=== PATIENT | male | born 1960 | race Caucasian/White ===

== ENCOUNTER 2022-04-27 16:16 | Observation (INO) | payer OTHER, SELFPAY ==
[2022-04-27] VITALS (17 sets, daily range): BP systolic 111–158; BP diastolic 64–107; PULSE 74–97; RESP 13–23; TEMP 36.6; O2SAT 93–99; BMI 26.6
--- NOTE | ~2022-04-27 | XR_ITS ---
XR chest 2V DATE: 04/27/2022 16:40 INDICATION: Right-sided chest pain. History of hypertension. Smoker. TECHNIQUE: PA and lateral views COMPARISON: None FINDINGS: There are plates and screws along the fifth through ninth ribs. Old right clavicular shaft fracture deformity. Likely chronic blunting of the right costophrenic angle. Normal heart size. Mild aortic unfolding. No pulmonary infiltrate or consolidation, pulmonary mass or congestion, pleural effusion or pneumothorax is evident. IMPRESSION: Old right clavicular shaft fracture deformity Plates and screws along fifth through ninth right ribs and probable chronic blunting of right costoph renic angle No active cardiopulmonary disease Reviewed, dictated and finalized at location A. IMPRESSION: Old right clavicular shaft fracture deformity Plates and screws along fifth through ninth right ribs and probable chronic nancy nting of right costophrenic angle No active cardiopulmonary disease
--- NOTE | ~2022-04-27 | NM_ITS ---
EXAMINATION: NM alexei stress w perfusion DATE: 04/28/2022 10:43 INDICATION: Chest pain. TECHNIQUE: Rest images were obtained following intravenous administration of 12.5 mCi Tc99m tetrofosm in (Myoview). The patient was infused intravenously with Lexiscan (regadenoson). Then, 33.2 mCi Tc99m tetrofosmin (Myoview) was administered intravenously, and stress images were obtained. Data was ap nstructed into short axis and horizontal and vertical long axis SPECT images. Gated SPECT images were also obtained. COMPARISON: None. FINDINGS: There is no definite reversible or fixed perfusion abnormality to suggest ischemia or infar ction. There is no segmental wall motion abnormality. Left ventricular ejection fraction measures 5 7%. IMPRESSION: 1. No definite ischemia or infarct. 2. Normal left ventricular ejection fraction measuring 57%. Reviewed, dictated and finalized at location A.
--- NOTE | 2022-04-27 16:18 | ECG_ITS ---
Measurements Intervals [place] Rate: 93 P: 56 IN: 136 QRS: 58 QRSD: 94 T: 61 QT: 342 QTc: 427 Interpretive Statements SINUS RHYTHM NORMAL ECG NO PREVIOUS ECG AVAILABLE FOR COMPARISON Electronically Signed On 04-27-2022 16:32:09 CDT by Fco Yates D.O.
[2022-04-27 16:44] LABS: Basophils Absolute Auto 0.1 K/mm3 (0.0-0.1); Basophils Percent Auto 0.6 % (0.2-1.2); Eosinophils Absolute Auto 0.1 K/mm3 (0-0.3); Eosinophils Percent Auto 1.5 % (0-4.4); Hematocrit 48.7 % (42.0-52.0); Hemoglobin 16.3 g/dL (14.0-18.0); Immature Granulocyte Absolute 0.02 K/mm3 (0.00-0.031); Immature Granulocyte Percent A 0.3 % (0-0.5); Lymphocytes Absolute Auto 3.01 K/mm3 (0.9-3.2); Lymphocytes Percent Auto 38.1 % (18.3-44.2); Mean Corpuscular HGB Conc 33.5 g/dl (32-36); Mean Corpuscular Hemoglobin 31.7 pg (26-34); Mean Corpuscular Volume 94.7 fl (80-100); Mean Platelet Volume 8.9 fl (7.4-10.4); Monocytes Absolute Auto 0.6 K/mm3 (0.1-0.6); Monocytes Percent Auto 7.2 % (2.6-8.5); Neutrophils Absolute Auto 4.1 K/mm3 (1.3-6.7); Neutrophils Percent Auto 52.3 % (45.5-73.1); Platelet Count Result 230 k/mm3 (150-375); Red Blood Count 5.14 M/mm3 (4.6-6.20); Red Cell Distribution Width 12.8 % (11.5-14.5); White Blood Count 7.9 K/mm3 (4.5-10.0)
[2022-04-27 16:48] LABS: Alanine Aminotransferase 27 U/L (6-50); Albumin Level 4.8 g/dL (3.5-5.1); Alkaline Phosphatase 92 U/L (38-126); Anion Gap 10 mmol/L (8-16); Aspartate Amino Transferase 31 U/L (17-59); Bilirubin,Total 0.5 mg/dL (0.2-1.3); Blood Urea Nitrogen 16 mg/dL (9-20); Calcium 8.9 mg/dL (8.4-10.2); Carbon Dioxide 27 mmol/L (22-30); Chloride 105 mmol/L (98-107); Estimated Glomerular Filt Rate > 60; Glucose 92 mg/dL (65-110); Lipase 159 U/L (23-300); Potassium 4.4 mmol/L (3.4-5.0); Sodium 142 mmol/L (137-145)
[2022-04-27 16:59] LABS: Troponin I < 0.012 ng/mL (0.000-0.034)
[2022-04-27 17:02] LABS: Prothrombin Time 12.7 Seconds (11.1-14.7)
[2022-04-27 17:03] LABS: Partial Thromboplastin Time 32.2 SECONDS (22.3-36.8)
[2022-04-27] MEDS: ASPIRIN 81 MG CHEWABLE TABLET 324 MG PO (18:29)
--- NOTE | 2022-04-27 18:29 | ED.CHESTPAIN ---
HPI - Chest Pain General Chief Complaint: Chest Pain Stated Complaint: CHEST PAIN [id number] Time Seen by Provider: 04/27/22 18:17 History of Present Illness HPI narrative: Pt states she developed anterior chest pain radiating to jaw and back at 1545 today. The pain lasted about 30 minutes and resolved on arrival to ER. Pt admits to having several similar episodes over the last few months that are not associated with exertion and resolve on their own. Pt had cardiac cath in 2019 with a 20% blockage per pt at [facility]. Related Data Allergies Allergy/AdvReac Type Severity Reaction Status Date / Time No Known Allergies Allergy Unverified 12/16/16 17:43 Review of Systems Review of Systems: All systems reviewed & are unremarkable except as noted in HPI and below PMFSH Past Medical History Medical History (Updated 04/27/22 @ 20:45 by María Santos NP) Diverticulosis of colon Hypertension CHERYL on CPAP Tobacco abuse Surgical History Surgical History (Updated 04/27/22 @ 20:45 by María Santos NP) H/O hand surgery H/O knee surgery H/O oral surgery H/O shoulder surgery S/P cardiac cath S/P colon resection Family History Family History (Updated 01/23/16 @ 23:19 by DOCTOR UNKNOWN) Sibling Family history of alcoholism Family history of diabetes mellitus in first degree relative Mother Family history of malignant neoplasm Other Family history of cardiovascular disease Social History Social History (Updated 04/27/22 @ 20:49 by María Santos NP) Social History: one child [facility] concrete smoke 1ppk [facility] Smoking status: Heavy tobacco smoker Alcohol intake: current Exam Const: General: healthy appearing and no acute distress Nutritional Appearance: well nourished Orientation/consciousness: patient oriented x3 Limitations: no limitations Neck: Neck: normal visual inspection Resp: Effort & Inspection: normal respiratory effort Auscultation: clear to auscultation bilaterally Cardio: Rate: regular rate Rhythm: regular rhythm GI: Auscultation: normal bowel sounds Skin: General skin exam: normal color Rashes: no rashes Neuro: General: patient oriented x3 Cranial nerves: Yes Nystagmus not present Speech: normal speech Extrem: General: normal to inspection and no clubbing, cyanosis or edema Psych: Mental Status: mental status grossly normal Affect: normal affect Attitude: cooperative Course Vital Signs Vital signs: Vital Signs Temperature 97.9 F 04/27/22 16:53 Pulse Rate 90 04/27/22 16:53 Respiratory Rate 14 04/27/22 16:53 Blood Pressure 143/102 H 04/27/22 16:53 Pulse Oximetry 96 04/27/22 16:53 Oxygen Delivery Room Air 04/27/22 16:53 Temperature 97.9 F 04/27/22 16:53 Pulse Rate 85 04/27/22 20:30 Respiratory Rate 17 04/27/22 20:30 Blood Pressure 136/93 H 04/27/22 20:01 Pulse Oximetry 95 04/27/22 20:30 Oxygen Delivery Room Air 04/27/22 16:53 MDM - Chest Pain Lab Data Result diagrams: 04/27/22 16:25 04/27/22 16:25 Labs: Lab Results 04/27/22 04/27/22 04/27/22 Range/Units 16:25 16:25 16:25 WBC 7.9 (4.5-10.0) K/mm3 RBC 5.14 (4.6-6.20) M/mm3 Hgb 16.3 (14.0-18.0) g/dL Hct 48.7 (42.0-52.0) % MCV 94.7 (80-100) fl MCH 31.7 (26-34) pg MCHC 33.5 (32-36) g/dl RDW 12.8 (11.5-14.5) % Plt Count 230 (150-375) k/mm3 MPV 8.9 (7.4-10.4) fl Immature Gran % (Auto) 0.3 (0-0.5) % Neut % (Auto) 52.3 (45.5-73.1) % Lymph % (Auto) 38.1 (18.3-44.2) % [place] % (Auto) 7.2 (2.6-8.5) % Eos % (Auto) 1.5 (0-4.4) % Baso % (Auto) 0.6 (0.2-1.2) % Lymph # (Auto) 3.01 (0.9-3.2) K/mm3 [place] # (Auto) 0.6 (0.1-0.6) K/mm3 Eos # (Auto) 0.1 (0-0.3) K/mm3 Baso # (Auto) 0.1 (0.0-0.1) K/mm3 Abs Immat Gran (auto) 0.02 (0.00-0.031) K/mm3 Absolute Neuts (auto) 4.1 (1.3-6.7) K/mm3 Absolute Nucleated RBC 0.0
[2022-04-27] MEDS: NITROGLYCERIN OINTMENT 1 INCH DOSE TRANSDERM (18:53)
[2022-04-27] MEDS: NICOTINE (*PBKC) 21 MG PATCH 1 PATCH (18:53)
[2022-04-27 19:38] LABS: Troponin I < 0.012 ng/mL (0.000-0.034)
--- NOTE | 2022-04-27 20:42 | PM.IMHP ---
H&P: HPI History of Present Illness Date/Time: 04/27/22 20:42 Chief Complaint: Chest pain Narrative: This is a 61-year-old male patient who has a history of hypertension. The patient developed chest pain today approximately around 3:45 p.m. that radiated to his jaw on his back. Patient stated that he still has a gallbladder but did not have any right upper quadrant pain. The patient states he does not have any history of GERD either. The patient stated that this episode lasted about 30 minutes and resolved on his way to the emergency room. The patient stated that he had similar episodes a few months ago that resolved on its own. The patient did have a cardiac catheterization at [facility] back in 2019 with 20% blockage. The patient stated that his cholesterol had been borderline but is not on any cholesterol medicine. The patient was given aspirin and nitro as well as a nicotine patch in the emergency room. Cardiac enzymes are negative x2 COVID is negative. Lipase is 159. Chest x-ray was read as old right clavicular shaft fracture deformity. Plates and screws along 5th through 9th right ribs and probable chronic blunting of right costophrenic angle. No active cardiopulmonary disease. The patient is being admitted to observation status on the date of service of 04/27/2022. Review of Systems Review of Systems: See HPI All systems reviewed & are unremarkable except as noted in HPI and below Constitutional: Constitutional: Reports as per HPI and Reports no additional constitutional complaints Eyes: Eyes: Reports as per HPI and Reports no additional eye complaints ENT: Reports system reviewed and no additional complaints, except as documented and Reports Normal hearing present Cardiovascular: Cardiovascular: Reports no additional cardiovascular complaints Respiratory: Respiratory: Reports no additional respiratory complaints and Reports no additional respiratory complaints Gastrointestinal: Gastrointestinal: Reports as per HPI and Reports no additional gastrointestinal complaints Musculoskeletal: Musculoskeletal: Reports no additional musculoskeletal complaints Integumentary/Breasts: Skin/Breast: Reports system reviewed and no additional complaints, except as docu and Reports as per HPI Neurologic: Reports system reviewed and no additional complaints, except as documented, Reports as per HPI and Reports Normal hearing present Psychiatric: Psychiatric: Reports no additional psychiatric complaints and Reports as per HPI Endocrine: Endocrine: Reports no additional endocrine complaints Hematologic/Lymphatic: Hematologic/Lymphatic: Reports no additional hematologic/lymphatic complaints Allergic/Immunologic: Allergic/Immunologic: Reports no additional allergic/immunologic complaints [facility] Past Medical History Medical History (Updated 04/28/22 @ 00:53 by María Santos NP) Diverticulosis of colon Hypertension CHERYL on CPAP Right rib fracture With plates and screws Tobacco abuse Surgical History Surgical History (Updated 04/27/22 @ 20:45 by María Santos NP) H/O hand surgery H/O knee surgery H/O oral surgery H/O shoulder surgery S/P cardiac cath S/P colon resection Family History Family History Sibling Family history of alcoholism Family history of diabetes mellitus in first degree relative Mother Family history of malignant neoplasm Other Family history of cardiovascular disease Social History Social History (Updated 04/28/22 @ 00:50 by María Santos NP) Social History: The patient is x2 and recently broke up with his significant other. He has One child. 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 He continues to Smoke 1 pack per day. He occasionally uses alcohol but denies any marijuana or illicit drugs. He does not have a durable power study abroad advisor for healthcare. Code status full code Smoking packs per day: 1 Smoking
[2022-04-27 21:27] LABS: SARS-CoV-2 RNA PCR Negative
--- NOTE | 2022-04-27 23:45 | ADMGEN ---
This patient, James Bobby, was admitted to IMU Room 201-01. Patient/family oriented to hospital policies and general routines including ID bracelet, bed and alarms, visiting hours, pain management, procedures, bathroom and other care routines, personal items, smoking policy, room service/diet, and visiting hours. Information on how to activate the Rapid Response Team has been discussed. Patient/Family are encouraged to report perceived risks to care and to ask questions if they do not understand what they are told or what they should do.
[2022-04-28] VITALS (14 sets, daily range): BP systolic 94–147; BP diastolic 54–87; PULSE 70–100; RESP 16–20; TEMP 36.2–36.8; O2SAT 94–100; BMI 26.6
--- NOTE | 2022-04-28 | ECHO_ITS ---
Patient Info Name: James Bobby Age: 61 years : 1960 Gender: Male Ht: 69 in Wt: 180 lbs BSA: 2.01 m2 HR: 78 bpm BP: 94 / 54 mmHg Heart Rhythm: Sinus Rhythm Technical Quality: Fair Exam Date: 04/28/2022 10:57 AM Exam Location: [facility] Pulmonary Patient Status: Outpatient Admit Date: 04/27/2022 Staff Ordering Physician: María Santos NP Placer Miner: Ekta Andrews RDCS Attending Provider: Shahriar Avila MD Referring Physician: Danielle MYLES; Exam Type: CA echo doppler color flow Study Info Indications R07.9 - Chest pain, unspecified Complete two-dimensional, color flow and Doppler transthoracic echocardiogram is performed. Summary 1. Complete two-dimensional, color flow and Doppler transthoracic echocardiogram is performed. 2. Left ventricular systolic function is normal, estimated at 55-60%. 3. There is mildly increased left ventricular wall thickness. 4. The left ventricular diastolic function is normal. 5. Right ventricular systolic function is normal. 6. No significant valvular disease. Left Ventricle Left ventricular chamber dimension is normal. Left ventricular systolic function is normal, estimated at 55-60%. There is mildly increased left ventricular wall thickness. The left ventricular diastolic function is normal. Right Ventricle Right ventricular chamber dimension is normal. Right ventricular systolic function is normal. Left Atria Left atrial chamber dimension is normal. Right Atria Right atrial chamber dimension is normal. Atrial Septum Intact interatrial septum visualized by color flow imaging. Aortic Valve The aortic valve is probable trileaflet. There is mild aortic valve sclerosis. There is no aortic valve stenosis. There is no aortic valve regurgitation. Pulmonic Valve The pulmonic valve is not well visualized. Mitral Valve The mitral valve has thickened leaflets. There is no mitral valve stenosis. There is no mitral valve regurgitation. Tricuspid Valve The tricuspid valve leaflets are normal. There is no significant tricuspid valve stenosis. There is no tricuspid valve regurgitation. Pericardium/Pleural There is no pericardial effusion. Inferior Vena Cava Normal inferior vena cava with <50% collapse upon inspiration consistent with elevated right atrial pressure. Aorta The aortic root size at the sinus of Valsalva is normal. Left Ventricular Outflow Tract Name Value Normal LVOT 2D LVOT Diameter 2.1 cm LVOT Doppler LVOT Peak Gradient 2 mmHg LVOT Mean Gradient 1 mmHg LVOT VTI 13 cm LVOT VTI/AV VTI Ratio 0.8 LVOT Stroke Volume 44 ml LVOT CO 3.4 l/min LVOT CI 1.7 l/min/m2 Pulmonic Valve Name Value Normal RVOT D
[2022-04-28 00:15] LABS: Troponin I < 0.012 ng/mL (0.000-0.034)
--- NOTE | 2022-04-28 00:42 | EST_ITS ---
Patient Info Name: James Bobby Age: 61 years : 1960 Gender: Male Ht: 69 in Wt: 180 lbs BSA: 2.01 m2 HR: 78 bpm BP: 136 / 88 mmHg Heart Rhythm: Sinus Rhythm Exam Date: 04/28/2022 8:38 AM Exam Location: [facility] Stress Patient Status: Outpatient Admit Date: 04/27/2022 Staff Ordering Physician: María Santos NP Attending Provider: Shahriar Avila MD Exercise Technologist: Liana Carlson CT Exercise Physician: Lupe Andres MD Exam Type: CA stress alexei w NM Study Info Indications R07.9 - Chest pain, unspecified A regadenoson stress test was performed. Summary 1. No abnormal ST-T wave changes with lexiscan. 2. Nuclear test results to follow. Protocol: Lexiscan Stress ECG Details Stage: REST Duration (min): 0 min : 53 sec HR (bpm): 78 SBP (mmHg): 136 DBP (mmHg): 88 Stage: REST Duration (min): 11 min : 26 sec HR (bpm): 76 SBP (mmHg): 136 DBP (mmHg): 88 Stage: STAGE 1 Duration (min): 0 min : 59 sec HR (bpm): 99 SBP (mmHg): 144 DBP (mmHg): 90 Stage: RECOVERY Duration (min): 1 min : 0 sec HR (bpm): 117 SBP (mmHg): 144 DBP (mmHg): 90 Stage: RECOVERY Duration (min): 2 min : 0 sec HR (bpm): 104 SBP (mmHg): 144 DBP (mmHg): 90 Stage: RECOVERY Duration (min): 2 min : 59 sec HR (bpm): 96 SBP (mmHg): 143 DBP (mmHg): 93 Rest HR: 76 bpm Peak HR: 119 bpm Rest Sys BP: 136 mmHg Peak Sys BP: 144 mmHg Max Pred HR: 161 bpm % Max Pred HR: 74 % Target HR: 137 bpm Max RPP: 17,136 bpm*mmHg Total Time: 1 min : 0 sec Rest Mck[place] BP: 88 mmHg Peak [place] BP: 90 mmHg Total Dose: 0.4 mg Resting ECG Normal sinus rhythm - normal ECG. Stress ECG No abnormal ST/T wave changes with exercise. Arrhythmias None. Report Signatures
[2022-04-28] MEDS: WATER FOR IRRIGATION, STERILE 1,000 ML BOTTLE 1000 ML (01:25)
[2022-04-28 05:01] LABS: Basophils Percent Auto 0.6 % (0.2-1.2); Eosinophils Absolute Auto 0.2 K/mm3 (0-0.3); Eosinophils Percent Auto 3.1 % (0-4.4); Hematocrit 44.3 % (42.0-52.0); Hemoglobin 14.8 g/dL (14.0-18.0); Immature Granulocyte Absolute 0.03 K/mm3 (0.00-0.031); Immature Granulocyte Percent A 0.4 % (0-0.5); Lymphocytes Percent Auto 33.5 % (18.3-44.2); Mean Corpuscular HGB Conc 33.4 g/dl (32-36); Mean Corpuscular Hemoglobin 31.8 pg (26-34); Mean Corpuscular Volume 95.1 fl (80-100); Mean Platelet Volume 9.1 fl (7.4-10.4); Monocytes Absolute Auto 0.5 K/mm3 (0.1-0.6); Monocytes Percent Auto 7.7 % (2.6-8.5); Neutrophils Absolute Auto 3.8 K/mm3 (1.3-6.7); Neutrophils Percent Auto 54.7 % (45.5-73.1); Platelet Count Result 190 k/mm3 (150-375); Red Blood Count 4.66 M/mm3 (4.6-6.20); Red Cell Distribution Width 13.2 % (11.5-14.5); White Blood Count 6.9 K/mm3 (4.5-10.0)
[2022-04-28 05:12] LABS: Alanine Aminotransferase 24 U/L (6-50); Alkaline Phosphatase 66 U/L (38-126); Anion Gap 8 mmol/L (8-16); Aspartate Amino Transferase 26 U/L (17-59); Bilirubin,Total 0.4 mg/dL (0.2-1.3); Blood Urea Nitrogen 17 mg/dL (9-20); Calcium 8.3 mg/dL (8.4-10.2); Carbon Dioxide 25 mmol/L (22-30); Chloride 108 mmol/L (98-107); Estimated CRCL calculation 70 ml/min; Estimated Glomerular Filt Rate > 60; Glucose 93 mg/dL (65-110); Magnesium 2.1 mg/dL (1.6-2.3); Potassium 4.1 mmol/L (3.4-5.0); Sodium 141 mmol/L (137-145)
--- NOTE | 2022-04-28 08:04 | PC.NURSE ---
Patient left floor with hospital staff for Valerie Scan. Patient denies shortness of breath, chest pain, no compaints at this time.
[2022-04-28] MEDS: DOCUSATE SODIUM LIQ 100 MG/10 ML UDC 50 MG PO (12:04)
[2022-04-28] MEDS: ENOXAPARIN 40 MG/0.4 ML SYRINGE SUB-Q (12:04)
[2022-04-28] MEDS: PANTOPRAZOLE SODIUM IV 40 MG VIAL IV PUSH (12:05)
[2022-04-28] MEDS: LOSARTAN POTASSIUM 100 MG TABLET PO (12:05)
--- NOTE | 2022-04-28 16:27 | PM.CNCAR ---
Assessment and Plan Assessment and plan (1) Chest pain: Code(s): R07.9 - Chest pain, unspecified Status: Acute Assessment and Plan: Chest pain which appears noncardiac. Catheterization in 2019 did not show any significant disease. EKG, troponins, Echo and Lexiscan all good here. Chest x-ray did not suggest any aortic problems. PE seems very unlikely. LFTs and lipase were normal. This appears to be noncardiac pain. Recommended patient follow-up with PCP and consider a GI evaluation (esophagus/gastric? Takes NSAIA). Consider resuming PPI. (2) Tobacco abuse: Code(s): Z72.0 - Tobacco use Status: Acute Assessment and Plan: Encouraged tobacco cessation, particularly in view of his father's premature CAD and his father's lung cancer. (3) Family history of premature CAD: Code(s): Z82.49 - Family history of ischemic heart disease and other diseases of the circulatory system Status: Acute Assessment and Plan: Discussed primary prevention with the patient. Patient does not want to start statins. Reviewed the beneficial effects of statins and preventing heart attacks and strokes , as well as the pleomorphic affects on the endothelium. Recommended tobacco cessation. History of Present Illness History of Present Illness Consult date/time: 04/28/22 16:27 Reason For Visit: CHEST PAIN Narrative: James Bobby is a 61 y.o. WM whom I was asked to see at the request of Dr. Peraza for my advice and opinion regarding his chest pain in consultation. The patient had episode of lower sternal epigastric chest pain at work yesterday and came to the emergency room. He was loading a truck at the time but did not feel this was very strenuous. It felt like a cramping pain that radiated through to the mid back and up to his jaws. There is no associated shortness of breath or diaphoresis but he felt slightly nauseated. It was nonpleuritic, nonpositional, nontender. Lasted about 30 minutes. Troponins and EKGs were unremarkable. No recurrence of CP. The patient's chest pain started in September 2018 when he woke with some lower chest discomfort and later underwent cardiac catheterization by Dr. James Perez: 20% stenosis of the proximal circumflex, otherwise normal coronary arteries, normal left ventricular systolic function. he has had sporadic episodes over the last couple of years. The other episode he had this year occurred on the 28 of December, Anticipated without coming to the emergency room. The chest pains are nonexertional. The patient smokes 1 pack a day. Blood pressure sometimes mildly elevated. He has been working on his cholesterol with a heart healthy diet and it has improved. He has a family history of heart disease with his father having problems in his mid 50s. The patient had GERD in his 40s and took Prilosec for that pain and discomfort is different. Review of Systems Constitutional: Constitutional: Denies fever(s) Eyes: Eyes: Reports no additional eye complaints ENT: Denies dysphagia and Denies epistaxis Cardiovascular: Cardiovascular: Reports chest pain, Denies pedal edema, Denies lightheadedness and Denies dyspnea Respiratory: Respiratory: Denies chest congestion and Denies dyspnea Comments: Smoked 1 pack per day. Once was able to stop for a year. Smokes due to stress. Gastrointestinal: Gastrointestinal: Denies abdominal pain, Denies hematochezia and Reports heartburn ( None recently) Genitourinary: Genitourinary: Denies hematuria Musculoskeletal: Musculoskeletal: Reports no additional musculoskeletal complaints Integumentary/Breasts: Skin/Breast: Reports system reviewed and no additional complaints, except as docu Neurologic: Reports system reviewed and no additional complaints, except as documented, Denies behavioral changes and Denies confusion Psychiatric: Psychiatric: Denies behavioral changes and Denies co
--- NOTE | 2022-05-07 09:51 | PM.DS ---
DS: Admitting Diagnosis Discharge Date 04/28/22 Admitting Diagnosis chest pain DS: Discharge Diagnosis Discharge Diagnosis (1) Chest pain: Code(s): R07.9 - Chest pain, unspecified Status: Acute Assessment and Plan: -the patient's chest pain has resolved. -so for his troponins are negative. -the patient did have a cardiac catheterization back in 2019 any was told that he has approximately 20% occlusion at that time. -I did order a stress test for tomorrow. The patient stated that he had his cholesterol checked and he was borderline and was able to control it with diet. -an echo has been ordered as well. (2) Hypertension: Code(s): I10 - Essential (primary) hypertension Status: Acute Assessment and Plan: -continue with his losartan. (3) Tobacco abuse: Code(s): Z72.0 - Tobacco use Status: Acute Assessment and Plan: ER provided a nicotine patch for the patient. We discussed smoking cessation for approximately 5 minutes. (4) CHERYL on CPAP: Code(s): G47.33 - Obstructive sleep apnea (adult) (pediatric); Z99.89 - Dependence on other enabling machines and devices Status: Acute Assessment and Plan: -continue with CPAP DS: Summary Hospital Course Reason for hospitalization: Chest pain Narrative: This is a 61-year-old male patient who has a history of hypertension.? The patient developed chest pain today approximately around 3:45 p.m. that radiated to his jaw on his back.? Patient stated that he still has a gallbladder but did not have any right upper quadrant pain.? The patient states he does not have any history of GERD either.? The patient stated that this episode lasted about 30 minutes and resolved on his way to the emergency room.? The patient stated that he had similar episodes a few months ago that resolved on its own.? The patient did have a cardiac catheterization at [facility] back in 2019 with 20% blockage.? The patient stated that his cholesterol had been borderline but is not on any cholesterol medicine.? The patient was given aspirin and nitro as well as a nicotine patch in the emergency room.? Cardiac enzymes are negative x2 COVID is negative.? Lipase is 159.? Chest x-ray was read as old right clavicular shaft fracture deformity.? Plates and screws along 5th through 9th right ribs and probable chronic blunting of right costophrenic angle.? No active cardiopulmonary disease.? The patient is being admitted to observation status on the date of service of 04/27/2022. Hospital Course: 61-year-old male with history of hypertension presented with complaint of chest history sets of cardiac enzymes are negative daughter no acute changes on EKG to further evaluate patient had a cardiac echo showed normal ejection fraction and no diastolic dysfunction, patient also had Lexiscan did not show any ischemic event, patient was seen by Cardiology does not suspect coronary artery disease, patient is clinically stable will discharge the patient to follow up with primary care and possibly GI consult Time Spent with Patient Time attestation: Total time spent providing and/or coordinating discharge services: Exam Narrative: Patient is comfortable, NAD HEENT: eyes are clear and none icteric LUNGS:CTA HEART: RR S1S2 ABD: BS+, Soft and nontender Lower extremities: no edema SKIN: nonjaundiced Neuro: grossly intact. Discharge Plan Discharge Attending physician on discharge: Lester Peraza Consulting providers: Lupe Andres ; María Santos ; Fco Yates ; Golden Ulloa ; Justin Rocha ; Kalyan Oneill V. Discharging Clinician: Lester Peraza Patient Disposition: Home, Self-Care Activity: as tolerated Diet: heart healthy Discharge Instructions: patient to follow up with his primary care provider and will need to consult GI for further recommendation, patient is instructed if any symptoms redevelop to go to nearest ER Patient Instr
== END 2022-04-28 17:53 | disposition home or self-care (01) ==
LOC: ANHED 20:27 → ANHIMU 23:24
PROVIDERS: Nurse Practitioner; Admitting Provider Internal Medicine; Emergency Provider Emergency Medicine; PCP Nurse Practitioner Family; Visit Provider Family Medicine
DX: R07.9 Chest pain, unspecified (principal); I10 Essential (primary) hypertension; R68.84 Jaw pain; M54.9 Dorsalgia, unspecified; I25.10 Atherosclerotic heart disease of native coronary artery without angina pectoris; K57.30 Diverticulosis of large intestine without perforation or abscess without bleeding; G47.33 Obstructive sleep apnea (adult) (pediatric); Z99.89 Dependence on other enabling machines and devices; Z20.822 Contact with and (suspected) exposure to COVID-19; Z90.49 Acquired absence of other specified parts of digestive tract; Z82.49 Family history of ischemic heart disease and other diseases of the circulatory system; F17.210 Nicotine dependence, cigarettes, uncomplicated; Z79.1 Long term (current) use of non-steroidal anti-inflammatories (NSAID); Z79.52 Long term (current) use of systemic steroids; Z79.899 Other long term (current) drug therapy
CPT/HCPCS: 36415; 71046; 78452; 80053; 83690; 83735; 84443; 84484; 85025; 85610; 85730; 93005; 93017; 93306; 99285; A9270; A9502; C9113; G0378; J1650; J2785; U0003; U0005

== ENCOUNTER → 2023-04-04 08:51 | Outpatient (CLI) | payer OTHER, SELFPAY ==
--- NOTE | ~2023-04-04 | MR_ITS ---
EXAMINATION: MR hip LT wo con DATE: 04/04/2023 10:01 INDICATION: Severe left hip pain TECHNIQUE: Magnetic resonance imaging (MRI) of the left hip was performed without intravenous contra st. Sequences included full-field axial PD-weighted FS FSE and T1-weighted FSE, coronal of the pelvis with PD-weighted FS FSE, small field of view of the left hip with axial PD-weighted FS FSE, sagitta l PD-weighted FS FSE and coronal PD weighted FS FSE. Additional radial T1-weighted FGR oriented ortho gonal to the acetabular rim were obtained for evaluation of the labrum. COMPARISON: None FINDINGS: Bones/labrum/cartilage: Alignment is normal. Small T1 hyperintense hemangioma at the left side of L4. No fracture, avascular necrosis or pathologic marrow replacing process. Small tear at the chondral labral junction at the 1: 00 position of the anterior left acetabular labrum. There is mild to moderate left hip osteoarthritis with nonuniform partial-thickness cartilage loss posteriorly with mild subarticular edema-like signa l change. Mild subarticular cystlike changes underlying an additional region of deep chondral ulcerat ion at the anterior left acetabulum. Finally there is a 2.5 x 1.5 cm region of partial-thickness peggy dral ulceration without degenerative subchondral changes which appears to involve both sides of the a t the superomedial aspect of the joint space. Small marginal osteophytes about the left femoral head. Mild to moderate lower lumbar spondylosis. Fluid: Likely reactive small left hip joint effusion. Physiologic amount fluid in the right hip joint space. No bursitis or other abnormal fluid collections. Soft tissues: Normal and symmetric muscle bulk and signal in the pelvis and visualized proximal thighs. The iliopso as, gluteal and proximal hamstring tendons are normal. Diffuse mild bladder wall thickening which may be related to chronic outlet obstruction from the enlarged prostate which measures 4.9 x 3.3 cm Limi cristal evaluation of visceral organs of the pelvis is otherwise unremarkable. No pathologically enlarge d pelvic/inguinal lymphadenopathy. IMPRESSION: 1. Mild to moderate left hip osteoarthritis with regions of high-grade chondromalacia and with focal small tear at the anterior labrum. 2. Diffuse mild bladder wall thickening which may be related to chronic outlet obstruction from the e nlarged prostate. 2. Mild to moderate lower lumbar spondylosis. Reviewed, dictated and finalized at location A. IMPRESSION: 1. Mild to moderate left hip osteoarthritis with regions of high-grade chondrom alacia and with focal small tear at the anterior labrum. 2. Diffuse mild bladder wall thickening which may be related to chronic outlet obstruction from the enlarged prostate. 2. Mild to moderate lower lumbar spondylosis.
== END ==
PROVIDERS: PCP Family Medicine; Visit Provider Orthopaedic Surgery
DX: M16.12 Unilateral primary osteoarthritis, left hip (principal); N32.89 Other specified disorders of bladder; N40.0 Benign prostatic hyperplasia without lower urinary tract symptoms; M43.06 Spondylolysis, lumbar region
CPT/HCPCS: 73721

== ENCOUNTER 2023-04-21 13:44 | Outpatient (CLI) | payer OTHER, SELFPAY ==
--- NOTE | ~2023-04-21 | XR_ITS ---
EXAMINATION: XR lg joint inject/asp w image DATE: 04/21/2023 14:53 INDICATION: Left hip arthritis TECHNIQUE: A time-out was performed to verify the patient's name, date of , and procedure to b e performed. The procedure including the risks, benefits, and alternatives was discussed with the pat ient. Risks discussed included bleeding and infection. The patient understood the risks and agreed to proceed. The skin overlying the left hip joint was prepped and draped in usual sterile fashion. An esthetic was administered with 1% lidocaine subcutaneously. A 22 G needle was advanced under fluoros copic guidance into the joint. Injection of 1 mL of Omnipaque 240 confirmed intra-articular position of the needle. Subsequently, injectate consisting of 4 mL of a 3:1 mixture of 1% lidocaine: 80 mg/m L Depo-Medrol for a total dosage of 80 mg Depo-Medrol was instilled. Washout of contrast was seen con firming intra-articular administration. The needle was removed and the entry site was cleaned and valentin ssed. There were no immediate complications. Fluoroscopy exposure time was 0.1 minutes. The total nu mber of images was 2. FINDINGS: Real-time fluoroscopy demonstrates the needle in the left hip joint. Patient's pain prior t o procedure:12/04. Patient's pain following the procedure: 09/03. IMPRESSION: 1. Successful left hip joint injection of local anesthetic and steroid with decrease in the patient's presenting pain. Reviewed, dictated and finalized at location A. IMPRESSION: 1. Successful left hip joint injection of local anesthetic and steroid with dec rease in the patient's presenting pain.
== END 2023-04-21 13:45 | disposition home or self-care (01) ==
PROVIDERS: PCP Family Medicine; Visit Provider Orthopaedic Surgery
DX: M16.12 Unilateral primary osteoarthritis, left hip (principal); M25.552 Pain in left hip
CPT/HCPCS: 20610; 77002; J1040; Q9966

== ENCOUNTER 2023-11-01 11:56 | Outpatient (CLI) | payer OTHER, MEDICAID, SELFPAY ==
[2023-11-01 14:19] LABS: Albumin Level 4.8 g/dL (3.5-5.1); Anion Gap 7 mmol/L (4-12); Basophils Absolute Auto 0.1 K/mm3 (0.0-0.1); Blood Urea Nitrogen 15 mg/dL (9-20); Calcium 9.3 mg/dL (8.4-10.2); Carbon Dioxide 30 mmol/L (22-30); Chloride 102 mmol/L (98-107); Eosinophils Absolute Auto 0.1 K/mm3 (0-0.3); Eosinophils Percent Auto 1.8 % (0-4.4); Estimated Glomerular Filt Rate > 60; Glucose 86 mg/dL (65-110); Hematocrit 48.6 % (42.0-52.0); Hemoglobin 16.7 g/dL (14.0-18.0); Immature Granulocyte Absolute 0.02 K/mm3 (0.00-0.031); Immature Granulocyte Percent A 0.3 % (0-0.5); Lymphocytes Absolute Auto 2.41 K/mm3 (0.9-3.2); Lymphocytes Percent Auto 38.7 % (18.3-44.2); Mean Corpuscular HGB Conc 34.4 g/dl (32-36); Mean Corpuscular Hemoglobin 30.8 pg (26-34); Mean Corpuscular Volume 89.7 fl (80-100); Mean Platelet Volume 9.4 fl (7.4-10.4); Monocytes Absolute Auto 0.5 K/mm3 (0.1-0.6); Monocytes Percent Auto 8.7 % (2.6-8.5); Neutrophils Absolute Auto 3.1 K/mm3 (1.3-6.7); Neutrophils Percent Auto 49.5 % (45.5-73.1); Platelet Count Result 226 k/mm3 (150-375); Potassium 3.3 mmol/L (3.4-5.0); Red Blood Count 5.42 M/mm3 (4.6-6.20); Red Cell Distribution Width 12.9 % (11.5-14.5); Sodium 139 mmol/L (137-145); White Blood Count 6.2 K/mm3 (4.5-10.0)
[2023-11-01 14:33] LABS: Urine Cotinine NEGATIVE
[2023-11-01 14:34] LABS: Hemoglobin A1C 5.3 % (<5.7)
== END 2023-11-01 11:57 | disposition home or self-care (01) ==
LOC: ANHSURGERY 12:05
PROVIDERS: PCP Family Medicine; Visit Provider Orthopaedic Surgery
DX: Z01.818 Encounter for other preprocedural examination (principal); M16.12 Unilateral primary osteoarthritis, left hip
CPT/HCPCS: 80048; 80307; 82040; 83036; 85025; 87081; 87147; 87181

== ENCOUNTER 2023-11-15 00:48 | Day surgery (SDC) | payer OTHER, MEDICAID, SELFPAY ==
[2023-11-01 11:44] VITALS: BP 130/90; PULSE 98; RESP 20; TEMP 37.2; O2SAT 95; BMI 28.9
--- NOTE | 2023-11-01 11:45 | PC.NURSE ---
PRE-OP INSTRUCTIONS, PLEASE READ CAREFULLY Report to the Outpatient Waiting Room, entrance under the green pavilion located off [facility], at time _0600_ on date _11/15/23_. Planned Procedure Time: _0730_. PACK A SMALL OVERNIGHT BAG AND LEAVE IN THE CAR ALONG WITH YOUR WALKER Time changes happen often and if your time is changed the preop area will call you the afternoon before. - You and your visitor will be asked to self-screen and do not enter if you have any COVID symptoms. - A mask is optional within the hospital at this time. -VISITING HOURS 8AM-8PM Patients may have clear liquids (water, carbonated beverages, clear teas, apple juice) until 3 hours prior to surgery (0430 AM) with a maximum of 20 ounces. - No food from midnight until time of surgery Take the following medications with a SIP of water the morning of surgery: _BUPROPION, & CYCLOBENZAPRINE, PAIN PILL IF NEEDED_ DO NOT STOP ANY OF YOUR OTHER PRESCRIPTION MEDICATIONS PRIOR TO SURGERY ?EXCEPT THE FOLLOWING Medications to discontinue per - _HYDROXYCHLOROQUINE INSTRUCTED BY DR. HENDRIX_ Medications to discontinue per ANESTHESIA - _MULTIVITAMINS & SUPPLEMENTS 3 DAYS PRIOR TO SURGERY, Date to take last dose 11/11/23_ Please no make-up, nail latvian, hairspray, perfume, deodorant, or body powder the day of surgery. No jewelry (including any body piercings) or valuables the day of surgery, leave them at home. Please take a shower or bath the night before, or the morning of, surgery with an antibacterial soap. Wear comfortable, loose fitting clothing. - Jewelry must be removed prior to entering the operating room. Rings and piercings that are not removed may be cut off. - The hospital will not accept responsibility for valuables. - Please leave all valuables, including medications, at home the day of surgery. If you are going home after surgery, a licensed lyft driver must drive you home. - NO public transportation without another adult if you receive anesthesia. - We recommend that an adult stay with you for 24 hours following discharge. - We also recommend that you do not drive, make important decision, drink alcoholic beverages, or take any drugs that were not prescribed by your health care provider for at least 24 hours after your discharge time. Follow any additional instructions given to you from your surgeon. If you or anyone in your household have experienced Covid symptoms in the past week, please notify your surgeon or the nurse liaison at the phone number below for possible testing. Instructions given to _PATIENT_and asked if any additional questions and then verbalized understanding. Patient advised to call surgeon office or pre surgery nurse liaison [phone] if any additional questions.
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
[2023-11-15] VITALS (14 sets, daily range): BP systolic 103–133; BP diastolic 70–91; PULSE 66–109; RESP 10–20; TEMP 36.2–36.8; O2SAT 93–100
--- NOTE | ~2023-11-15 | XR_ITS ---
XR surgery orthopedic DATE: 11/15/2023 11:41 INDICATION: Anterior approach left hip replacement TECHNIQUE: 2 spot C-arm AP images of the left hip 56.2 seconds fluoroscopy time 16.56 mGy COMPARISON: 09/28/2023 left hip FINDINGS: Status post left femoral head and neck resection and interval left total hip arthroplasty s asa September 28, 2023. Normal alignment. No fracture or dislocation or bone destruction is evident. IMPRESSION: Status post left total hip arthroplasty Reviewed, dictated and finalized at Location A. Reviewed, dictated and finalized at location B.
--- NOTE | ~2023-11-15 | XR_ITS ---
EXAMINATION: XR hip LT 1V w AP pelvis DATE: 11/15/2023 12:13 INDICATION: Left hip arthroplasty. Postop. TECHNIQUE: An anteroposterior view of the pelvis and single view of left hip were obtained. COMPARISON: Left hip radiographs 09/28/2023 FINDINGS: There is a total left hip arthroplasty in near-anatomic alignment. No fracture. There is mo derate right hip osteoarthritis. A surgical drain overlies the soft tissues lateral to left hip. IMPRESSION: 1. Total left hip arthroplasty in near-anatomic alignment. 2. Moderate right hip osteoarthritis. Reviewed, dictated and finalized at location A.
[2023-11-15] MEDS: VANCOMYCIN 1,250 MG/NS 250 ML BAG 166.67 MG IVPB (06:30)
[2023-11-15] MEDS: LACTATED RINGERS 1,000 ML 30 ML IV CONT ×2 (06:30→11:51)
[2023-11-15] MEDS: TRANEXAMIC ACID 1,000MG/ISO100 1,000 MG/100 ML BAG 200 MG IVPB (07:00)
[2023-11-15] MEDS: ACETAMINOPHEN 500 MG TABLET 1000 MG PO ×3 (07:00→17:58)
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
--- NOTE | 2023-11-15 07:13 | WPDHPUPDATE1 ---
History and Physical Update Update Date/Time: 11/15/23 07:13 History and Physical has been reviewed, including an updated exam of the patient. There are NO changes in the patient's condition. Risks, benefits, and alternatives have been discussed and questions answered. Patient agrees to proceed with procedure.
[2023-11-15] MEDS: ceFAZolin 2 GM/D5W 50 ML 2 GM/50 ML BAG IVPB ×3 (07:32→22:08)
[2023-11-15] MEDS: ceFAZolin SODIUM 1 GM VIAL 3 GM (08:39)
[2023-11-15] MEDS: SODIUM CHLORIDE 0.9% IV 37.7 ML, MORPHINE SULFATE INJ (*CRX) 2 MG, ROPivacaine HCL 1% 2... INFILTRATE (08:40)
[2023-11-15] MEDS: ceFAZolin SODIUM 1 GM VIAL 2 GM IV PUSH (10:55)
[2023-11-15] MEDS: TRANEXAMIC ACID 1,000 MG/10 ML AMPUL 1000 MG IV PUSH (11:02)
--- NOTE | 2023-11-15 11:49 | P.OP_ITS ---
Procedure Note - Detailed Date of Procedure 11/15/23 Pre-op Diagnosis OA left hip Post-op Diagnosis Same Procedure Performed Left total hip arthroplasty direct anterior approach Surgeon Juanito Anthony MD Revenue Agent Georgie Harris Anesthesia General Description of Procedure Patient is brought to the operating room and general anesthesia was administered. He received 2 g of Ancef weight based vancomycin 1 g of tranexamic acid preoperatively. The feet were padded and boots applied [facility] and the right hip prepped draped usual fashion. A 10 cm longitudinal incision was made starting 3 cm lateral to the ASIS. The fascia over the tensor fascia jenny was exposed and longitudinally incised. Elevated off the anterior 1/2 the TFL muscle and interval between TFL and rectus femoris developed. Crossing branches of ascending lateral femoral circumflex vessels were ligated with suture divided. Retractor was placed anteriorly capsule the hip abducted the gluteus medius elevated off the lateral capsule. Inverted T capsulotomy was performed. Femoral neck osteotomy made according to preoperative templating. The femoral head was removed without difficulty and measured 49 mm in diameter. The acetabulum was exposed labrum excised residual articular cartilage curetted. Leg was externally rotated extended and the lateral capsule insertion on the femur was released and conjoined tendon piriformis interval was incised to short distance to expose the saddle which allowed the conjoined tendon to recess a little bit. Acetabulum was then exposed and under fluoroscopic guidance we medialized with a 44 Reamer and gradually reamed up to 51 mm and we lightly reamed with a 52 mm Reamer a 52 trial was snug we impacted the 52 mm diameter pinnacle cup at 40? of abduction and anteversion such that the anterior edge of the shell was 2 mm under the anterior rim of the acetabulum. Single screw placed in the ilium. 0 degree 36 inner diameter liner seated without difficulty. Inferior acetabular osteophyte was removed Femur was externally rotated extended with the table hook and the the femoral canal was aspirated and we broached up to a size 6 which had no wiggle on torsional stress. We trialed in the 1.5 mm head high offset neck which gave normal stability with ample Shuck. The-2 head was unstable with external rotation. Fluoroscopic x-rays showed equal leg lengths and offset and this matched our preoperative templating plan. We calcar planed and impacted the size 6 high offset Actis stem which seated fully with snug fit. We trialed again with the 1.5 head which had the same stability findings as before. After thorough irrigation with Ancef solution the size 1.5 ceramic 36 mm diameter femoral head was impacted on the clean and dried trunnion. Hip reduced stability reconfirmed. Capsule was reapproximated 2. Vicryl superiorly. Local anesthetic cocktail was injected. The fascia closed with running 1. Vicryl drain deep in the subcu layer skin closed with 2 subcutaneous Vicryl and glue. EBL was estimated at 300. Cell Saver stated the only collected 125. No Cell Saver blood could be returned the blood loss was too low. Two additional g of Ancef and 1 g of TXA given time wound closure. There were no complications he was transferred postop recovery room in good condition. Bone quality seemed excellent. ANUEL Billing Surgery - Charge Forward: Surgery Billing (Left total hip replacement)
[2023-11-15] MEDS: fentaNYL CITRATE INJ (*CRX) 100 MCG/2 ML VIAL 25 MCG IV PUSH ×2 (12:01→12:10)
--- NOTE | 2023-11-15 13:36 | ADMGEN ---
This patient, James Bobby, was admitted to Medical Room 241-. Patient/family oriented to hospital policies and general routines including ID bracelet, bed and alarms, visiting hours, pain management, procedures, bathroom and other care routines, personal items, smoking policy, room service/diet, and visiting hours. Information on how to activate the Rapid Response Team has been discussed. Patient/Family are encouraged to report perceived risks to care and to ask questions if they do not understand what they are told or what they should do.
[2023-11-15] MEDS: oxyCODONE HCL (*CRX) 5 MG TAB IR PO ×3 (14:05→21:04)
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
[2023-11-15] MEDS: SENNA/DOCUSATE SODIUM TABLET 2 TAB PO (17:58)
[2023-11-15] MEDS: KETOROLAC 15 MG/ML VIAL (*BKC) IV PUSH ×2 (17:58→22:07)
[2023-11-15] MEDS: OPTI-GEN TAB 1 TABLET PO (17:58)
[2023-11-15] MEDS: VANCOMYCIN 1,000 MG/NS 250 ML 1,000 MG/250 ML BAG 250 MG IVPB (17:59)
[2023-11-15] MEDS: FAMOTIDINE 20 MG TABLET PO (21:03)
[2023-11-15] MEDS: buPROPion HCL SR (12 HR) 150 MG TAB PO (21:03)
[2023-11-15] MEDS: PROMETHAZINE HCL 25 MG/ML AMPUL 12.5 MG IV PUSH (22:08)
[2023-11-16 00:03] VITALS: BP 111/67; PULSE 97; RESP 18; TEMP 36.7; O2SAT 94
[2023-11-16] MEDS: oxyCODONE HCL (*CRX) 5 MG TAB IR PO ×4 (01:09→10:54)
[2023-11-16] MEDS: ACETAMINOPHEN 500 MG TABLET 1000 MG PO ×3 (01:09→12:05)
[2023-11-16 02:56] VITALS: RESP 10; O2SAT 95
[2023-11-16 04:14] VITALS: BP 116/66; PULSE 87; RESP 20; TEMP 36.7; O2SAT 94
[2023-11-16 04:15] VITALS: BP 114/66; PULSE 87; RESP 20; TEMP 36.7; O2SAT 94
[2023-11-16 05:21] LABS: Basophils Percent Auto 0.2 % (0.2-1.2); Hematocrit 41.3 % (42.0-52.0); Hemoglobin 13.5 g/dL (14.0-18.0); Immature Granulocyte Absolute 0.05 K/mm3 (0.00-0.031); Immature Granulocyte Percent A 0.5 % (0-0.5); Lymphocytes Absolute Auto 1.25 K/mm3 (0.9-3.2); Lymphocytes Percent Auto 11.4 % (18.3-44.2); Mean Corpuscular HGB Conc 32.7 g/dl (32-36); Mean Corpuscular Hemoglobin 30.8 pg (26-34); Mean Corpuscular Volume 94.1 fl (80-100); Mean Platelet Volume 9.1 fl (7.4-10.4); Monocytes Absolute Auto 0.9 K/mm3 (0.1-0.6); Monocytes Percent Auto 7.8 % (2.6-8.5); Neutrophils Absolute Auto 8.8 K/mm3 (1.3-6.7); Neutrophils Percent Auto 80.1 % (45.5-73.1); Platelet Count Result 190 k/mm3 (150-375); Red Blood Count 4.39 M/mm3 (4.6-6.20); Red Cell Distribution Width 13.2 % (11.5-14.5); White Blood Count 10.9 K/mm3 (4.5-10.0)
[2023-11-16 05:24] LABS: Alanine Aminotransferase 25 U/L (6-50); Albumin Level 3.7 g/dL (3.5-5.1); Alkaline Phosphatase 47 U/L (38-126); Anion Gap 6 mmol/L (4-12); Aspartate Amino Transferase 27 U/L (17-59); Bilirubin,Total 0.4 mg/dL (0.2-1.3); Blood Urea Nitrogen 21 mg/dL (9-20); Calcium 7.9 mg/dL (8.4-10.2); Carbon Dioxide 26 mmol/L (22-30); Chloride 105 mmol/L (98-107); Estimated CRCL calculation 67 ml/min; Estimated Glomerular Filt Rate > 60; Glucose 108 mg/dL (65-110); Magnesium 1.7 mg/dL (1.6-2.3); Potassium 3.9 mmol/L (3.4-5.0); Sodium 137 mmol/L (137-145)
[2023-11-16] MEDS: ceFAZolin 2 GM/D5W 50 ML 2 GM/50 ML BAG IVPB (06:39)
[2023-11-16] MEDS: VANCOMYCIN 1,000 MG/NS 250 ML 1,000 MG/250 ML BAG 250 MG IVPB (07:19)
--- NOTE | 2023-11-16 07:21 | PM.IMPN ---
Progress Note: A&P Assessment and Plan (1) Primary osteoarthritis of left hip: Code(s): M16.12 - Unilateral primary osteoarthritis, left hip Status: Acute Assessment and Plan: Postoperative day 0 status post left total hip arthroplasty, direct anterior approach. Wound care, pain control, and DVT prophylaxis deferred to Dr. Anthony. Check baseline labs in a.m.. (2) Postoperative nausea: Code(s): R11.0 - Nausea; Z98.890 - Other specified postprocedural states Status: Acute Assessment and Plan: Zofran does not seem to be helping much. Trial Phenergan 12.5 mg IV x1. (3) Hypertension: Code(s): I10 - Essential (primary) hypertension Status: Acute Assessment and Plan: Blood pressures were reviewed and they have been stable postoperatively. Resume antihypertensives and continue to monitor daily. (4) Obstructive sleep apnea on CPAP: Code(s): G47.33 - Obstructive sleep apnea (adult) (pediatric) Status: Acute Assessment and Plan: CPAP will be provided for the patient to use while hospitalized. (5) Hyperlipidemia: Code(s): E78.5 - Hyperlipidemia, unspecified Status: Acute Assessment and Plan: Continue statin and check LFTs. (6) Gastroesophageal reflux disease: Code(s): K21.9 - Gastro-esophageal reflux disease without esophagitis Status: Acute Assessment and Plan: Continue PPI. (7) Seronegative rheumatoid arthritis of both hands: Code(s): M06.041 - Rheumatoid arthritis without rheumatoid factor, right hand; M06.042 - Rheumatoid arthritis without rheumatoid factor, left hand Status: Acute Assessment and Plan: Continue hydroxychloroquine. Plan Thank you for allowing us to participate in this patient's care. Please do not hesitate to contact us with any questions. Subjective Date/time seen: 11/16/23 07:21 Review of Systems Review of Systems: 12 systems were reviewed and are negative except for as per HPI. Exam Narrative: General: Well-developed, nontoxic-appearing male sitting in a chair at the side of bed in no distress. Weight: 96.4 kg. BMI: 30.9. HEENT: PERRL, EOMI. Sclera anicteric. Oral mucosa moist. Neck: Supple. Respiratory: Lungs are clear to auscultation bilaterally. Cardiovascular: Regular rate and rhythm with S1-S2. Gastrointestinal: Abdomen is soft, nontender, and nondistended with positive bowel sounds. Skin: Warm and dry. No rash or lesions on limited exam. Extremities: No cyanosis, clubbing, or edema. Radial and pedal pulses intact. Musculoskeletal: Left hip dressing is clean, dry, and intact. He is neurovascularly intact distal to the surgical site. Neurological: Alert. Cranial nerves 2-12 grossly intact. No gross focal deficits to casual conversation. Psychiatric: Pleasant and cooperative with normal mood and affect. Judgment and insight intact. Objective Data Vital Signs Vital Signs: Vital Signs - 24 hr 11/15/23 11:51 11/15/23 12:00 11/15/23 12:15 Temperature 97.4 F L Pulse Rate 100 96 92 Respiratory Rate 14 10 L 14 Blood Pressure 105/71 103/70 115/79 Pulse Oximetry 97 100 94 Oxygen Delivery Simple Face Mask Simple Face Mask Nasal Cannula Oxygen Flow Rate 10 10 4 11/15/23 12:30 11/15/23 12:45 11/15/23 13:10 Temperature 97.2 F L Pulse Rate 91 92 91 Respiratory Rate 12 12 12 Blood Pressure 110/78 111/84 119/72 Pulse Oximetry 95 97 93 Oxygen Delivery Nasal Cannula Nasal Cannula Oxygen Flow Rate 4 4 11/15/23 13:25 11/15/23 14:05 11/15/23 15:05 Temperature 97.5 F L 97.5 F L 97.5 F L Pulse Rate 91 66 98 Respiratory Rate 12 16 16 Blood Pressure 119/72 131/85 111/78 Pulse Oximetry 93 97 97 Oxygen Delivery Oxygen Flow Rate 11/15/23 15:17 11/15/23 18:28 11/15/23 18:35 Temperature 98.2 F Pulse Rate 109 H Respiratory Rate 16 Blood Pressure 133/74 Pulse Oximetry 96 Oxygen De
--- NOTE | 2023-11-16 07:29 | PM.IMCN ---
Assessment and Plan Assessment and plan (1) Primary osteoarthritis of left hip: Code(s): M16.12 - Unilateral primary osteoarthritis, left hip Status: Acute Assessment and Plan: post left total hip arthroplasty, direct anterior approach. Wound care, pain control, and DVT prophylaxis deferred to Dr. Anthony- started on eliquis working with PT/OT per ortho-d/c home today (2) Postoperative nausea: Code(s): R11.0 - Nausea; Z98.890 - Other specified postprocedural states Status: Acute Assessment and Plan: -zofran prn - was given phenergan x 1 with relief - monitor (3) Hypertension: Code(s): I10 - Essential (primary) hypertension Status: Acute Assessment and Plan: - continue home Losartan 100 mg, chlorthalidone 25 mg daily - stable (4) Obstructive sleep apnea on CPAP: Code(s): G47.33 - Obstructive sleep apnea (adult) (pediatric) Status: Acute Assessment and Plan: continue CPAP (5) Hyperlipidemia: Code(s): E78.5 - Hyperlipidemia, unspecified Status: Acute Assessment and Plan: - continue home statin (6) Gastroesophageal reflux disease: Code(s): K21.9 - Gastro-esophageal reflux disease without esophagitis Status: Acute Assessment and Plan: - continue home protonix (7) Seronegative rheumatoid arthritis of both hands: Code(s): M06.041 - Rheumatoid arthritis without rheumatoid factor, right hand; M06.042 - Rheumatoid arthritis without rheumatoid factor, left hand Status: Acute Assessment and Plan: Continue home hydroxychloroquine. Plan pt is stable from medical standpoint. Discharged per ortho today HPI Date of Consult Consult date: 11/16/23 Requesting Physician: Juanito Anthony MD Primary Care Provider: Eliezer Lao, M.Bang Consult Narrative Reason for consult: medical management Narrative: James Bobby is a 63 year old male with PMH of osteoarthritis, seronegative rheumatoid arthritis hydroxychloroquine, hypertension, CAD- cardiac catheterization in 2019, hypertension, and hyperlipidemia whom the hospitalist service has been consulted for help managing his medical conditions postoperatively. S/p elective left hip arthroplasty due to ongoing pain despite conservative outpatient treatment. Surgery was performed under general anesthesia with no immediate complications documented an estimated blood loss of 300 mL. Postoperatively he has ongoing issues with nausea- he was given a dose of phenergan with relief of symptoms. His pain is manageable as long as he is sitting still however can jump to a 9/10 with activity. He has been up with therapy and to the chair without issue. He denies fever, chills, sweats, vomiting, chest pain, and shortness of breath. He also denies paresthesias, skin color and temperature changes distal to the surgical site. Care coordination recommend rehab as pt lives alone and benefit from PT/OT Regarding his chronic medical condition, he believes they are well controlled on home medication. No history of venous thromboembolism. He is started on eliquis per ortho team today, 11/15/22. 11/15- pt is seen and examined today- Review of Systems Constitutional: Constitutional: Denies headache(s) ENT: Denies headache(s) Cardiovascular: Cardiovascular: Denies chest pain and Denies diaphoresis Respiratory: Respiratory: Denies chest congestion, Denies cough and Denies dyspnea Gastrointestinal: Gastrointestinal: Denies abdominal pain and Denies melena Genitourinary: Genitourinary: Denies hematuria and Denies dysuria Musculoskeletal: Musculoskeletal: Reports stiffness Comments: lt hip pain and stiff ness with movement Neurologic: Denies Abnormal speech present and Denies headache(s) Psychiatric: Psychiatric: Denies anxiety and Denies behavioral changes PMFSH Past Medical History Medical History (Updated 11/15/23 @ 21:06 by Chiquis Nathan PA-C) Arthritis
[2023-11-16 08:10] VITALS: BP 142/66; PULSE 107; RESP 16; TEMP 36.8; O2SAT 94
[2023-11-16] MEDS: CELECOXIB 100 MG CAPSULE PO (08:18)
[2023-11-16] MEDS: APIXABAN 2.5 MG TABLET PO (08:18)
[2023-11-16] MEDS: ASCORBIC ACID 500 MG TABLET PO (08:18)
[2023-11-16] MEDS: SENNA/DOCUSATE SODIUM TABLET 2 TAB PO (08:19)
[2023-11-16] MEDS: ATORVASTATIN 20 MG TABLET PO (08:19)
[2023-11-16] MEDS: buPROPion HCL SR (12 HR) 150 MG TAB PO (08:19)
[2023-11-16] MEDS: CHLORTHALIDONE 12.5 MG TAB PO (08:19)
[2023-11-16] MEDS: LOSARTAN POTASSIUM 100 MG TABLET PO (08:20)
[2023-11-16] MEDS: OPTI-GEN TAB 1 TABLET PO (08:20)
[2023-11-16] MEDS: MULTIVITAMINS THERAPEUTIC TAB (*BKC) 1 TABLET PO (08:20)
[2023-11-16] MEDS: HYDROXYCHLOROQUINE SULFATE 200 MG TABLET PO (08:20)
[2023-11-16] MEDS: PANTOPRAZOLE 40 MG TABLET PO (08:20)
[2023-11-16] MEDS: FAMOTIDINE 20 MG TABLET PO (08:20)
[2023-11-16] MEDS: polyethylene glycoL 3350 17 GM POWD.PACK PO (08:21)
--- NOTE | 2023-11-16 08:55 | P.PNAN_ITS ---
Anes - Prog Note Post-Op Date/Time: 11/16/23 08:55 Vital Signs: Last Vital Signs Temp 36.8 C 11/16/23 08:10 Pulse 107 H 11/16/23 08:10 Resp 16 11/16/23 08:10 BP 142/66 H 11/16/23 08:10 Pulse Ox 94 11/16/23 08:10 O2 Del Method Autopap 11/16/23 02:56 O2 Flow Rate 4 11/15/23 12:45 Pain Score (VAS): 4-6, receiving po pain pills which help I/O: Intake & Output 11/15/23 11/16/23 11/16/23 23:59 07:59 15:59 Intake Total 420 440 Output Total 90 Balance 420 350 Laboratory Tests 11/16/23 04:29 11/16/23 04:29 11/16/23 04:29 WBC 10.9 H RBC 4.39 L Hgb 13.5 L D Hct 41.3 L MCV 94.1 MCH 30.8 MCHC 32.7 RDW 13.2 Plt Count 190 MPV 9.1 Immature Gran % (Auto) 0.5 Neut % (Auto) 80.1 H Lymph % (Auto) 11.4 L [place] % (Auto) 7.8 Eos % (Auto) 0.0 Baso % (Auto) 0.2 Lymph # (Auto) 1.25 [place] # (Auto) 0.9 H Eos # (Auto) 0.0 Baso # (Auto) 0.0 Abs Immat Gran (auto) 0.05 H Absolute Neuts (auto) 8.8 H Absolute Nucleated RBC 0.000 Nucleated RBC % 0.0 Sodium 137 Potassium 3.9 Chloride 105 Carbon Dioxide 26 Anion Gap 6 BUN 21 H Creatinine 1.20 Estim Creat Clear Calc 67 Estimated GFR > 60 Glucose 108 Calcium 7.9 L Magnesium 1.7 Total Bilirubin 0.4 Direct Bilirubin 0.0 AST 27 ALT 25 Alkaline Phosphatase 47 Total Protein 6.0 L Albumin 3.7 Post-procedural complaints: nausea (states he had a little nausea after anesthesia but it wasn't bad; no complaints now) Patient Feedback: Patient satisfied with anesthetic care.
--- NOTE | 2023-11-16 08:59 | PM.DS ---
DS: Admitting Diagnosis Discharge Date 11/16/2023 Admitting Diagnosis osteoarthritis left hip DS: Discharge Diagnosis Discharge Diagnosis (1) Status post left hip replacement: Code(s): Z96.642 - Presence of left artificial hip joint Status: Acute DS: Summary Hospital Course Hospital Course: patient has done well after surgery. He was up walking around his room last night and tolerates full weight-bearing. He notes that the pain that he had before the surgery is gone and the just has the soft tissue soreness. He does not feel the pain when he is sitting at rest like it did before surgery or when he rotates his leg like he did before surgery. His wound looks excellent. He has intact sensation motor function left foot. He is alert and oriented comfortable. He had some nausea late yesterday afternoon which has resolved. His laboratory studies show hemoglobin 13.5 representing acute blood loss anemia mild. CMP showed minimal elevation of BUN at 21 calcium 7.9 total protein 6.0. Otherwise normal. Patient feels confident that he will do well at home like to be discharged today. Precautions were reviewed with him and he will call if he has any problems. He will see us in about 2 weeks for wound inspection. Time Spent with Patient Time attestation: Total time spent providing and/or coordinating discharge services: DS: Data Data Completed and Pending Labs on day of discharge: Labs from last 24 hours 11/16/23 04:29 WBC 10.9 H RBC 4.39 L Hgb 13.5 L D Hct 41.3 L MCV 94.1 MCH 30.8 MCHC 32.7 RDW 13.2 Plt Count 190 MPV 9.1 Immature Gran % (Auto) 0.5 Neut % (Auto) 80.1 H Lymph % (Auto) 11.4 L [place] % (Auto) 7.8 Eos % (Auto) 0.0 Baso % (Auto) 0.2 Lymph # (Auto) 1.25 [place] # (Auto) 0.9 H Eos # (Auto) 0.0 Baso # (Auto) 0.0 Abs Immat Gran (auto) 0.05 H Absolute Neuts (auto) 8.8 H Absolute Nucleated RBC 0.000 Nucleated RBC % 0.0 Sodium 137 Potassium 3.9 Chloride 105 Carbon Dioxide 26 Anion Gap 6 BUN 21 H Creatinine 1.20 Estim Creat Clear Calc 67 Estimated GFR > 60 Glucose 108 Calcium 7.9 L Magnesium 1.7 Total Bilirubin 0.4 Direct Bilirubin 0.0 AST 27 ALT 25 Alkaline Phosphatase 47 Total Protein 6.0 L Albumin 3.7 Discharge Plan Discharge Patient Disposition: Home, Self-Care Discharge Instructions: CARIDAD HENDRIX M.D [facility] [address] [address] [address] [place] [address] POST-OPERATIVE DISCHARGE INSTRUCTIONS ANTERIOR TOTAL HIP ARTHROPLASTY 1. Move toes/feet up and down every hour while awake. 2. Be up walking every hour while awake. 3. Use walker multimedia technician if instructed to use walker multimedia technician.When you are allowed to use the cane, use the cane in the opposite hand. 4. When resting, do not rest in the chair. Rather, lie on your back, with back flat, and the leg elevated above heart to minimize swelling. You may put a pillow under your head. Do not rest in a chair. Resting in the chair results in swelling in the leg. Significant swelling could indicate a blood clot and if this occurs, call the office (or go to the ER) to have a venous ultrasound performed. Its ok to sit in the chair to eat and use the toilet and to receive a guest but sitting in a chair will cause your leg to swell. so try to minimize sitting in a chair. 5. Wound Care: Apply a folded 4x4 sponge to incision and hold with crossing strips of 1 inch Transpore tape. 6. Follow weight bearing status as instructed: 7. May shower. Remove dressing before shower and reapply dressing after shower. we are giving you Pepcid to take for 10 days which will give your stomach and esophagus a little more protection while you are taking the lowest dose of Celebrex for heterotopic ossification prophylaxis. As I have discussed with you, if weight-bearing you can practice using the cane in the right hand. The most important consideratio
[2023-11-16 12:00] VITALS: BP 132/78; PULSE 109; RESP 20; TEMP 36.3; O2SAT 93
== END 2023-11-16 12:45 | disposition home or self-care (01) ==
LOC: ANHSURGERY 05:44 → ANH2MED 13:59
PROVIDERS: Physician Assistant; PCP Family Medicine; Visit Provider Orthopaedic Surgery
PROC: (CPT 27130; principal; 2023-11-15 07:30)
DX: M16.12 Unilateral primary osteoarthritis, left hip (principal); D62 Acute posthemorrhagic anemia; R11.0 Nausea; I25.10 Atherosclerotic heart disease of native coronary artery without angina pectoris; I10 Essential (primary) hypertension; G47.33 Obstructive sleep apnea (adult) (pediatric); E78.5 Hyperlipidemia, unspecified; K21.9 Gastro-esophageal reflux disease without esophagitis; M06.041 Rheumatoid arthritis without rheumatoid factor, right hand; M06.042 Rheumatoid arthritis without rheumatoid factor, left hand; Z87.891 Personal history of nicotine dependence
CPT/HCPCS: 27130; 36415; 73501; 80048; 80076; 80307; 82040; 83036; 83735; 85025; 86850; 86900; 86901; 87081; 87147; 87181; 97110; 97116; 97161; 97165; 97530; 97535; 99199; A9270; C1776; J0171; J0690; J1100; J1170; J1885; J2250; J2270; J2405; J2550; J2704; J2795; J3010; J3370; J7120